=== PATIENT | male | born 1955 | race Caucasian/White ===

== ENCOUNTER → 2017-11-05 | Outpatient (CLI) | payer OTHER ==
[~2017-11-05] MED LIST: ACET500 PO; AMLO5 PO; AMOX1XR PO; Chondroitin Su250 MG PO; Flonase 0.05% N16 GM; HYDCHL25 PO; HYDR1TAB94 PO; KETO10 PO; LEVO750 PO; LOSHYD100 PO; MECL12.5 PO; NEBI10 PO; ONDA8 PO; OXYACE5T PO; PROBIOTIC1 EAC1; PROM25 PO; TAMS.4ER PO; VALS80 PO; Zofran Odt4 MG SL
== END | disposition home or self-care (01) ==
LOC: OLS 13:54
PROVIDERS: Internal Medicine
DX: N18.2 Chronic kidney disease, stage 2 (mild) (principal)
CPT/HCPCS: 81050; 82570; 84156

== ENCOUNTER → 2017-11-11 | Outpatient (CLI) | payer OTHER ==
[2017-11-11 16:32] LABS: Anion Gap 8 mmol/L (6-16); Blood Urea Nitrogen 24 mg/dL (8-24); Bun/Creatinine Ratio 24.4 (12.0-20.0); CO2, Blood 27 mmol/L (21-32); Calcium, Blood 9.2 mg/dL (8.5-10.1); Chloride, Blood 105 mmol/L (98-108); Creatinine, Blood 0.98 mg/dL (0.60-1.20); Glomerular Filtration Rate >60 (60-); Glucose, Blood 81 mg/dL (70-99); Potassium, Blood 3.9 mmol/L (3.5-5.5); Sodium, Blood 140 mmol/L (136-145)
[2017-11-12 20:49] LABS: ANA Positive (NEG); Myeloperoxidase Antibody <0.2 AI (<1.0)
[2017-11-12 20:51] LABS: IgA 678 mg/dL (71-397); IgG 859 mg/dL (758-1612); IgM 77 mg/dL (40-230)
[2017-11-13 12:40] LABS: Albumin 3.6 g/dL (3.3-4.8); Albumin 51.9 % (45.0-80.0)
[2017-11-13 19:02] LABS: ANCA <1:20
== END | disposition home or self-care (01) ==
LOC: OLS 14:20
PROVIDERS: Internal Medicine
DX: N18.2 Chronic kidney disease, stage 2 (mild) (principal)
CPT/HCPCS: 36415; 80048; 82784; 83516; 84165; 86038; 86225; 86235; 86256; 86334

== ENCOUNTER 2018-11-11 11:20 | Day surgery (SDC) | payer OTHER ==
[~2018-11-11] VITALS: Ht 180.3 cm; Wt 118.3 kg
[~2018-11-11 11:20] MED LIST changes: +ACETAMINOPHEN500 MG PO; +ATOR20 PO; +Aspirin EC81 MG PO; +LOSARTAN POTAS100 MG PO; +NEBI5 PO
== END 2018-11-11 13:09 | disposition home or self-care (01) ==
LOC: ORSCSDS 11:20
PROVIDERS: Internal Medicine Gastroenterology
PROC: 0DBM8ZX Excision of Descending Colon, Via Natural or Artificial Opening Endoscopic, Diagnostic (ICD-10-PCS; principal; 2018-11-11 12:45)
PROC: 0DBK8ZX Excision of Ascending Colon, Via Natural or Artificial Opening Endoscopic, Diagnostic (ICD-10-PCS; principal; 2018-11-11 12:45)
DX: Z12.11 Encounter for screening for malignant neoplasm of colon (principal); Z86.010 Personal history of colon polyps; K63.5 Polyp of colon; D12.4 Benign neoplasm of descending colon; I10 Essential (primary) hypertension; J45.909 Unspecified asthma, uncomplicated; E78.5 Hyperlipidemia, unspecified; G47.33 Obstructive sleep apnea (adult) (pediatric); E66.01 Morbid (severe) obesity due to excess calories; Z68.35 Body mass index [BMI] 35.0-35.9, adult; Z79.82 Long term (current) use of aspirin; Z79.899 Other long term (current) drug therapy
CPT/HCPCS: 88305; J7120

== ENCOUNTER 2020-07-18 06:31 | Day surgery (SDC) | payer OTHER ==
[~2020-07-18] VITALS: Ht 177.8 cm; Wt 131.0 kg
[~2020-07-18 06:31] MED LIST changes: +Isosorbide Mono30 MG PO
--- NOTE | 2020-07-18 10:45 | NUR ---
SALINE LOCK REMOVED. CLOTH DOT PLACED TO RIGHT RADIAL SITE. SLING PLACED R ARM. CALLED AND IS PRESENT. DISCHARGE GONE OVER WITH BOTH PT AND . BOTH VERBALIZE UNDERSTANING OF INSTRUCTIONS. PT DISCHARGED PER W/C TO PRIVATE VEHICLE.
== END 2020-07-18 10:30 | disposition home or self-care (01) ==
LOC: MHTC 06:31
PROC: 4A023N7 Measurement of Cardiac Sampling and Pressure, Left Heart, Percutaneous Approach (ICD-10-PCS; principal; 2020-07-18)
PROC: B201YZZ Plain Radiography of Multiple Coronary Arteries using Other Contrast (ICD-10-PCS; principal; 2020-07-18)
DX: I25.110 Atherosclerotic heart disease of native coronary artery with unstable angina pectoris (principal); I10 Essential (primary) hypertension; G47.30 Sleep apnea, unspecified; E66.9 Obesity, unspecified; E78.00 Pure hypercholesterolemia, unspecified; Z88.5 Allergy status to narcotic agent; Z88.8 Allergy status to other drugs, medicaments and biological substances; Z79.82 Long term (current) use of aspirin; Z79.899 Other long term (current) drug therapy; Z68.41 Body mass index [BMI] 40.0-44.9, adult
CPT/HCPCS: 76937; 85347; 93458; 99152; 99153; C1769; C1894; J1644; J2250; J3010; J7030; J7050; Q9967

== ENCOUNTER 2021-04-18 06:41 | Day surgery (SDC) | payer OTHER ==
[~2021-04-18] VITALS: Ht 178 cm; Wt 130.9 kg
[~2021-04-18 06:41] MED LIST changes: +LOSARTAN-HCTZ1 EAC5 PO
--- NOTE | 2021-04-18 09:42 | NUR ---
Ambulatory in Day Surgery History, Chart, Medications and Allergies reviewed before start of procedure.Patient confirms NPO status and agrees with scheduled surgery. Patient reports completing Chlorhexadine shower X2 prior to admission to hospital.Surgical site prepped with 2% Chlorhexidine cloth wipe.
--- NOTE | 2021-04-18 12:48 | NUR ---
ARRIVAL TO UNIT PT ARRIVED TO UNIT FROM PACU AT 1230. PT AA0X4, DENIES PAIN AT THIS TIME. POLAR LENORE ON CDI. CHRIS WRAP CDI. PT ON 2L VIA NC, SATS AT 88-90% WITHOUT. 95% ON 2L. CANNOT WIGGLE TOES AT THIS TIME, AND REPORTS DECREASED SENSATION UP TO WAIST. CALL LIGHT IS IN REACH AND PATIENT ORIENTED ON USE. CURRENTLY HE IS RESTING IN BED LAYING FLAT. BP LOW ON ARRIVAL, SYSTOLIC 88. HE DENIES FEELING LIGHTHEADED OR DIZZY, IV FLUIDS INFUSING.
--- NOTE | 2021-04-18 17:01 | NUR ---
SHIFT SUMMARY S/P RTKA PT AA0X4, DRESSING CDI. POLAR LENORE IS IN PLACE. PT NEEDED IV PAIN MEDICATION X1 DURING SHIFT FOR BREAKTHROUGH PAIN, REPORTS GREAT IMPROVEMENT AT THIS TIME. ABLE TO WORK WITH THERAPY AND AMBULATE THE HALLS. VOIDED X1. TOLERATING PO, REPORTS SLIGHT NAUSEA WITH SOME FOODS. PLAN IS TO WORK WITH THERAPY TOMORROW AND DISCHARGE HOME.
[2021-04-19 04:22] LABS: BASOPHILS ABSOLUTE AUTO 0.02 K/mm3 (0.00-0.23); BASOPHILS PERCENT AUTO 0 % (0-2); EOSINOPHILS PERCENT AUTO 0 % (0-6); Hematocrit 37.4 % (37.0-53.0); Hemoglobin 12.5 g/dL (13.5-17.5); IMMATURE GRAN ABSOLUTE AUTO 0.09 K/mm3 (0.00-0.10); IMMATURE GRAN PERCENT AUTO 1 % (0-1); LYMPHOCYTES ABSOLUTE AUTO 0.96 K/mm3 (0.84-5.20); LYMPHOCYTES PERCENT AUTO 6 % (21-46); MONOCYTES ABSOLUTE AUTO 0.96 K/mm3 (0.16-1.47); MONOCYTES PERCENT AUTO 6 % (4-13); Mean Corpuscular HGB 30.9 pg (26.0-34.0); Mean Corpuscular HGB Conc 33.4 g/dL (31.5-36.5); Mean Corpuscular Volume 93 fL (80-100); Mean Platelet Volume 9.1 fL (9.1-12.4); NEUTROPHILS ABSOLUTE AUTO 13.78 K/mm3 (1.96-9.15); NEUTROPHILS PERCENT AUTO 87 % (41-73); Platelet Count 261 K/mm3 (150-400); RDW Coefficient Variation 12.7 % (11.7-14.2); RDW Standard Deviation 43.8 fL (35.1-46.3); Red Blood Cell Count 4.04 M/mm3 (4.30-5.90); White Blood Cell Count 15.81 K/mm3 (4.00-11.30)
[2021-04-19 04:42] LABS: Anion Gap 8 mmol/L (6-16); Blood Urea Nitrogen 33 mg/dL (8-24); Bun/Creatinine Ratio 27.3 (12.0-20.0); CO2, Blood 23 mmol/L (21-32); Calcium, Blood 8.4 mg/dL (8.5-10.1); Chloride, Blood 106 mmol/L (98-108); Creatinine, Blood 1.21 mg/dL (0.60-1.20); Glomerular Filtration Rate >60 (60-); Glucose, Blood 129 mg/dL (70-99); Potassium, Blood 4.2 mmol/L (3.5-5.5); Sodium, Blood 137 mmol/L (136-145)
--- NOTE | 2021-04-19 05:12 | NUR ---
SHIFT SUMMARY A/OX4, 1 ASSIST WITH FWW AND GB. AMBULATING FOSS THIS SHIFT. C/O NAUSEA T/O SHIFT, MEDICATED PER EMAR. AQUACEL DRESSING C/D/I WITH POLAR PACK IN PLACE. VSS, NO ACUTE CHANGES AT THIS TIME. BED IN LOWEST POSITION WITH CALL LIGHT IN REACH. WILL CONTINUE TO MONITOR AND REPORT TO ONCOMING RN.
[2021-04-19] MEDS ORDERED: Percocet 5-3251 EACH PO (08:59)
[2021-04-19] MEDS ORDERED: ONDA4 PO (08:59)
[2021-04-19] MEDS ORDERED: XARELTO10 M5 PO (09:00)
--- NOTE | 2021-04-19 14:09 | NUR ---
DISCHARGE NOTE: PATIENT WAS EDUCATED ON DISCHARGE INSTRUCTIONS. PATIENT AND VERBALIZED UNDERSTANDING OF INSTRUCTIONS. HARD PERSCRIPTIONS WERE IN THE INSTRUCTION PACKET. PATIENT IS ALERT AND ORIENTED X4. VS ARE WNL AND ON RA. PAIN IS MANAGED WITH PO NARCOTIC MEDICATION. HE IS ABLE TO WIGGLE FINGERS AND TOES. PATIENT AMBULATED IN HALLWAYS WITH SBA WITH FWW AND GAIT BELT. HE HAS HIS ITEMS GATHERED. IV WAS TAKEN OUT AND WAS WNL. HE IS DRESSED AND WAS WHEELCHAIRED OUT TO HIS TO BE TAKEN HOME.
== END 2021-04-19 14:05 | disposition home or self-care (01) ==
LOC: ORSCMMR 06:41 → ORD 08:15 → ORSCMMR 08:15 → SURS 12:15 → ORSCMMR 04-19 14:05 → SURS 04-19 14:05
PROVIDERS: Orthopaedic Surgery
PROC: 0SRC0JA Replacement of Right Knee Joint with Synthetic Substitute, Uncemented, Open Approach (ICD-10-PCS; principal; 2021-04-18 08:15)
PROC: 8E0YXBZ Computer Assisted Procedure of Lower Extremity (ICD-10-PCS; principal; 2021-04-18 08:15)
DX: M17.11 Unilateral primary osteoarthritis, right knee (principal); I10 Essential (primary) hypertension; E78.5 Hyperlipidemia, unspecified; G47.33 Obstructive sleep apnea (adult) (pediatric); Z86.711 Personal history of pulmonary embolism; E66.01 Morbid (severe) obesity due to excess calories; Z68.41 Body mass index [BMI] 40.0-44.9, adult; Z79.82 Long term (current) use of aspirin; Z79.899 Other long term (current) drug therapy
CPT/HCPCS: 36415; 73560-RT; 80048; 85025; 97110; 97116; 97162; A9270; C1776; J0171; J0690; J0735; J1100; J1170; J1885; J2370; J2405; J2704; J2765; J2795; J7120

== ENCOUNTER → 2021-05-08 | Outpatient (CLI) | payer OTHER ==
[~2021-05-08] MED LIST changes: +ONDA4 PO; +Percocet 5-3251 EACH PO; +XARELTO10 M5 PO
[2021-05-08 14:10] LABS: BASOPHILS ABSOLUTE AUTO 0.07 K/mm3 (0.00-0.23); BASOPHILS PERCENT AUTO 1 % (0-2); EOSINOPHILS ABSOLUTE AUTO 0.07 K/mm3 (0.00-0.68); EOSINOPHILS PERCENT AUTO 1 % (0-6); Hematocrit 40.3 % (37.0-53.0); Hemoglobin 13.4 g/dL (13.5-17.5); IMMATURE GRAN ABSOLUTE AUTO 0.03 K/mm3 (0.00-0.10); IMMATURE GRAN PERCENT AUTO 0 % (0-1); LYMPHOCYTES ABSOLUTE AUTO 1.97 K/mm3 (0.84-5.20); LYMPHOCYTES PERCENT AUTO 23 % (21-46); MONOCYTES ABSOLUTE AUTO 0.63 K/mm3 (0.16-1.47); MONOCYTES PERCENT AUTO 7 % (4-13); Mean Corpuscular HGB 31.2 pg (26.0-34.0); Mean Corpuscular HGB Conc 33.3 g/dL (31.5-36.5); Mean Corpuscular Volume 94 fL (80-100); Mean Platelet Volume 9.3 fL (9.1-12.4); NEUTROPHILS PERCENT AUTO 68 % (41-73); Platelet Count 391 K/mm3 (150-400); RDW Coefficient Variation 12.7 % (11.7-14.2); RDW Standard Deviation 43.4 fL (35.1-46.3); Red Blood Cell Count 4.29 M/mm3 (4.30-5.90); White Blood Cell Count 8.57 K/mm3 (4.00-11.30)
[2021-05-08 14:23] LABS: Albumin, Blood 3.8 g/dL (3.4-5.0); Bilirubin, Total 0.7 mg/dL (0.1-1.0); Bun/Creatinine Ratio 17.4 (12.0-20.0); Calcium, Blood 9.8 mg/dL (8.5-10.1); Creatinine, Blood 1.44 mg/dL (0.60-1.20); Globulin, Blood 3.9 g/dL (2.2-4.0); Potassium, Blood 4.6 mmol/L (3.5-5.5); Total Protein, Blood 7.7 g/dL (6.4-8.2)
== END | disposition home or self-care (01) ==
LOC: LAB 14:04 → LAB SHORT 14:04
PROVIDERS: Physician Assistant
DX: E86.0 Dehydration (principal); R11.2 Nausea with vomiting, unspecified
CPT/HCPCS: 80053; 83690; 85025; 85651

== ENCOUNTER 2021-08-15 05:52 | Day surgery (SDC) | payer OTHER ==
[~2021-08-15] VITALS: Ht 180.3 cm; Wt 111.7 kg
[~2021-08-15 05:52] MED LIST changes: +ASPI81CH PO
--- NOTE | 2021-08-15 13:06 | NUR ---
POST OP: REPORT RECEIVED FROM DEB NUGENT. PT TO UNIT AT ABOUT 1020, IS A/O, VSS. SURGICAL SITE CDI WITH POLAR PAC. PT UNABLE TO WIGGLE TOES, WILL CTM AND AWAIT RETURN OF SENSATION.
--- NOTE | 2021-08-15 16:27 | NUR ---
SUMMARY: PT IS POD0 L TKA. VSS, A/O. SURGICAL SITE WNL AND PT ABLE TO WORK WITH THERAPY. VOIDING, MARCELLE SMALL AMT LIQUID PO. PT C/O NAUSEA UNABLE TO EAT MUCH, NO EMESIS. MEDICATED PER EMAR. PT HAS REPORTED MINIMAL PAIN. NO ACUTE CONCERNS, WILL REPORT TO KOREY BOYD.
[2021-08-16 04:30] LABS: BASOPHILS ABSOLUTE AUTO 0.03 K/mm3 (0.00-0.23); BASOPHILS PERCENT AUTO 0 % (0-2); EOSINOPHILS ABSOLUTE AUTO 0.01 K/mm3 (0.00-0.68); EOSINOPHILS PERCENT AUTO 0 % (0-6); Hematocrit 36.1 % (37.0-53.0); Hemoglobin 11.7 g/dL (13.5-17.5); IMMATURE GRAN ABSOLUTE AUTO 0.07 K/mm3 (0.00-0.10); IMMATURE GRAN PERCENT AUTO 1 % (0-1); LYMPHOCYTES ABSOLUTE AUTO 1.08 K/mm3 (0.84-5.20); LYMPHOCYTES PERCENT AUTO 9 % (21-46); MONOCYTES ABSOLUTE AUTO 0.97 K/mm3 (0.16-1.47); MONOCYTES PERCENT AUTO 8 % (4-13); Mean Corpuscular HGB 30.5 pg (26.0-34.0); Mean Corpuscular HGB Conc 32.4 g/dL (31.5-36.5); Mean Corpuscular Volume 94 fL (80-100); Mean Platelet Volume 9.5 fL (9.1-12.4); NEUTROPHILS ABSOLUTE AUTO 10.43 K/mm3 (1.96-9.15); NEUTROPHILS PERCENT AUTO 83 % (41-73); Platelet Count 238 K/mm3 (150-400); RDW Coefficient Variation 13.1 % (11.7-14.2); RDW Standard Deviation 44.7 fL (35.1-46.3); Red Blood Cell Count 3.83 M/mm3 (4.30-5.90); White Blood Cell Count 12.59 K/mm3 (4.00-11.30)
[2021-08-16 04:46] LABS: Anion Gap 5 mmol/L (6-16); Blood Urea Nitrogen 24 mg/dL (8-24); Bun/Creatinine Ratio 25.9 (12.0-20.0); CO2, Blood 25 mmol/L (21-32); Calcium, Blood 8.5 mg/dL (8.5-10.1); Chloride, Blood 110 mmol/L (98-108); Creatinine, Blood 0.93 mg/dL (0.60-1.20); Glomerular Filtration Rate >60 (60-); Glucose, Blood 121 mg/dL (70-99); Potassium, Blood 4.3 mmol/L (3.5-5.5); Sodium, Blood 140 mmol/L (136-145)
--- NOTE | 2021-08-16 06:15 | NUR ---
RESTING WELL IN SUPINE WITH EYES CLOSED, HAS AMBULATED WELL IN ROOM. PAIN MANAGED PER MD ORDERS. PLEASANT AND COOPERATIVE WITH CARE. CHRIS WRAP OVER AQUACEL WITH POLAR LENORE IN PLACE TO LEFT KNEE. DENIES FURTHER NEEDS OR WANTS AT THIS TIME. SAFETY MEASURES IN PLACE. WILL CONTINUE TO MONITOR AND ASSRESS NEEDS THEY ARISE. WILL GIVE HAND OFF TO ONCOMING SHIFT USING SBAR DURING BEDSIDE REPORT.
[2021-08-16] MEDS ORDERED: XARELTO10 M1 PO (08:50)
[2021-08-16] MEDS ORDERED: HYDMOR2 PO (08:50)
[2021-08-16] MEDS ORDERED: PROM25 PO (08:51)
--- NOTE | 2021-08-16 09:30 | NUR ---
DISCHARGE INSTRUCTIONS GIVEN TO PATIENT AT THIS TIME. PATIENT VERBALIZED UNDERSTANDING OF INSTRUCTIONS. IV REMOVED. DRESSING TO LEFT KNEE CLEAN/DRY AND INTACT. PRESCRIPTIONS GIVEN. NO SIGNS OR SYMPTOMS ACUTE DISTRESS NOTED, NO COMPLAINTS OF PAIN OR NAUSEA.
== END 2021-08-16 09:53 | disposition home or self-care (01) ==
LOC: SURS 05:52 → ORSCMMR 05:52 → SURS 10:39 → ORSCMMR 08-16 09:53
PROVIDERS: Orthopaedic Surgery
PROC: 8E0Y0CZ Robotic Assisted Procedure of Lower Extremity, Open Approach (ICD-10-PCS; principal; 2021-08-15 07:30)
PROC: 0SRD0JA Replacement of Left Knee Joint with Synthetic Substitute, Uncemented, Open Approach (ICD-10-PCS; principal; 2021-08-15 07:30)
DX: M17.12 Unilateral primary osteoarthritis, left knee (principal); I10 Essential (primary) hypertension; E78.00 Pure hypercholesterolemia, unspecified; Z79.899 Other long term (current) drug therapy; Z79.82 Long term (current) use of aspirin
CPT/HCPCS: 27447; S2900; 36415; 73560-LT; 80048; 85025; 97110; 97116; 97162; A9270; C1776; J0171; J0690; J0735; J1100; J1170; J1885; J2250; J2405; J2704; J2765; J2795; J3010; J7120

== ENCOUNTER 2021-10-13 09:39 | Day surgery (SDC) | payer OTHER ==
[~2021-10-13] VITALS: Ht 180.3 cm; Wt 104.6 kg
[~2021-10-13 09:39] MED LIST changes: +HYDMOR2 PO; +XARELTO10 M1 PO
== END 2021-10-13 12:38 | disposition home or self-care (01) ==
LOC: ORSCSDS 09:39
PROVIDERS: Orthopaedic Surgery
PROC: 0SNDXZZ Release Left Knee Joint, External Approach (ICD-10-PCS; principal; 2021-10-13 11:00)
DX: M24.662 Ankylosis, left knee (principal); Z96.652 Presence of left artificial knee joint; I10 Essential (primary) hypertension; G47.33 Obstructive sleep apnea (adult) (pediatric); E66.9 Obesity, unspecified; Z68.32 Body mass index [BMI] 32.0-32.9, adult; Z79.899 Other long term (current) drug therapy
CPT/HCPCS: A9270; J0690; J1885; J2250; J2704; J3010; J7120

== ENCOUNTER 2021-12-29 06:41 | Day surgery (SDC) | payer OTHER ==
[~2021-12-29] VITALS: Ht 180.3 cm; Wt 110.9 kg
[2021-12-29] MEDS ORDERED: CELEBREX200 MG PO (07:21)
[2021-12-29] MEDS ORDERED: LOSARTAN POTAS100 M1 PO (07:22)
[2021-12-29] MEDS ORDERED: Ultram50 MG PO (07:22)
[2021-12-29] MEDS ORDERED: ASPI81CH PO (07:27)
--- NOTE | 2021-12-29 09:28 | NUR ---
12/29/21 0928 Evelyn Ferrara REPORT GIVEN TO [facility].RDS. VSS. PT IN CHAIR WITH OP LIMB ELEVATED, ICE BEHIND THE KNEE. PT HAS PO FLUIDS AND SNACKS AT CHAIRSIDE. CALL LIGHT IN REACH.
== END 2021-12-29 10:03 | disposition home or self-care (01) ==
LOC: ORSCSDS 06:41
PROVIDERS: Podiatrist Foot & Ankle Surgery
PROC: 0L8P0ZZ Division of Left Lower Leg Tendon, Open Approach (ICD-10-PCS; principal; 2021-12-29 08:00)
DX: M21.6X2 Other acquired deformities of left foot (principal); I10 Essential (primary) hypertension; Z86.718 Personal history of other venous thrombosis and embolism; Z79.82 Long term (current) use of aspirin; Z79.899 Other long term (current) drug therapy; E66.9 Obesity, unspecified; Z68.34 Body mass index [BMI] 34.0-34.9, adult
CPT/HCPCS: A9270; J0171; J0690; J1100; J2250; J2405; J2704; J3010; J7120

== ENCOUNTER 2022-02-05 11:22 | Day surgery (SDC) | payer OTHER ==
[~2022-02-05] VITALS: Ht 180.3 cm; Wt 113.6 kg
[~2022-02-05 11:22] MED LIST changes: +CELEBREX200 MG PO; +LOSARTAN POTAS100 M1 PO; +Ultram50 MG PO
== END 2022-02-05 14:08 | disposition home or self-care (01) ==
LOC: ORSCSDS 11:22
PROVIDERS: Podiatrist Foot & Ankle Surgery
PROC: 0L8N0ZZ Division of Right Lower Leg Tendon, Open Approach (ICD-10-PCS; principal; 2022-02-05 12:45)
DX: M21.6X1 Other acquired deformities of right foot (principal); I10 Essential (primary) hypertension; Z79.899 Other long term (current) drug therapy; E66.9 Obesity, unspecified; Z68.34 Body mass index [BMI] 34.0-34.9, adult
CPT/HCPCS: J0171; J0690; J2250; J2704; J3010; J7120

== ENCOUNTER 2022-05-28 06:49 | Day surgery (SDC) | payer OTHER ==
[~2022-05-28] VITALS: Ht 180.3 cm; Wt 115.1 kg
== END 2022-05-28 08:40 | disposition home or self-care (01) ==
LOC: ORSCSDS 06:49
PROVIDERS: Orthopaedic Surgery
PROC: 01N50ZZ Release Median Nerve, Open Approach (ICD-10-PCS; principal; 2022-05-28 08:15)
DX: G56.03 Carpal tunnel syndrome, bilateral upper limbs (principal); I10 Essential (primary) hypertension; E78.5 Hyperlipidemia, unspecified; M19.041 Primary osteoarthritis, right hand; I25.10 Atherosclerotic heart disease of native coronary artery without angina pectoris; G47.33 Obstructive sleep apnea (adult) (pediatric); E66.9 Obesity, unspecified; Z68.35 Body mass index [BMI] 35.0-35.9, adult; Z79.82 Long term (current) use of aspirin; Z79.899 Other long term (current) drug therapy
CPT/HCPCS: J1100; J2250; J2405; J2704; J3010; J7120

== ENCOUNTER 2022-07-10 06:20 | Day surgery (SDC) | payer OTHER ==
[~2022-07-10] VITALS: Ht 180.3 cm; Wt 121.2 kg
[2022-07-10] MEDS ORDERED: LOSA50 PO (06:59)
--- NOTE | 2022-07-10 07:05 | NUR ---
07/10/22 0705 Lorena Macias CALL LIGHT WITHIN REACH
== END 2022-07-10 08:25 | disposition home or self-care (01) ==
LOC: ORSCSDS 06:20
PROVIDERS: Orthopaedic Surgery
PROC: 01N50ZZ Release Median Nerve, Open Approach (ICD-10-PCS; principal; 2022-07-10 07:30)
DX: G56.02 Carpal tunnel syndrome, left upper limb (principal); I10 Essential (primary) hypertension; G47.33 Obstructive sleep apnea (adult) (pediatric); E78.5 Hyperlipidemia, unspecified; E66.9 Obesity, unspecified; Z68.37 Body mass index [BMI] 37.0-37.9, adult; Z79.82 Long term (current) use of aspirin; Z79.899 Other long term (current) drug therapy
CPT/HCPCS: J0171; J2250; J2704; J3010; J7120

== ENCOUNTER 2023-06-08 21:35 | Emergency (ER) | payer OTHER ==
[~2023-06-08] VITALS: Ht 180.3 cm; Wt 112.5 kg
[~2023-06-08 21:35] MED LIST changes: +LOSA50 PO
[2023-06-08 22:51] LABS: Albumin, Blood 3.3 g/dL (3.4-5.0); Albumin/Globulin Ratio 0.9 (0.8-1.8); Bilirubin, Total 0.3 mg/dL (0.1-1.0); Calcium, Blood 8.8 mg/dL (8.5-10.1); Globulin, Blood 3.5 g/dL (2.2-4.0); Total Protein, Blood 6.8 g/dL (6.4-8.2)
[2023-06-08 23:07] LABS: BASOPHILS ABSOLUTE AUTO 0.04 K/mm3 (0.00-0.23); BASOPHILS PERCENT AUTO 1 % (0-2); EOSINOPHILS PERCENT AUTO 3 % (0-6); Hematocrit 41.9 % (37.0-53.0); Hemoglobin 14.1 g/dL (13.5-17.5); IMMATURE GRAN ABSOLUTE AUTO 0.03 K/mm3 (0.00-0.10); IMMATURE GRAN PERCENT AUTO 0 % (0-1); LYMPHOCYTES ABSOLUTE AUTO 2.02 K/mm3 (0.84-5.20); LYMPHOCYTES PERCENT AUTO 26 % (21-46); MONOCYTES ABSOLUTE AUTO 0.52 K/mm3 (0.16-1.47); MONOCYTES PERCENT AUTO 7 % (4-13); Mean Corpuscular HGB 31.3 pg (26.0-34.0); Mean Corpuscular HGB Conc 33.7 g/dL (31.5-36.5); Mean Corpuscular Volume 93 fL (80-100); Mean Platelet Volume 9.5 fL (9.1-12.4); NEUTROPHILS ABSOLUTE AUTO 4.84 K/mm3 (1.96-9.15); NEUTROPHILS PERCENT AUTO 63 % (41-73); Platelet Count 230 K/mm3 (150-400); RDW Coefficient Variation 13.1 % (11.7-14.2); RDW Standard Deviation 44.6 fL (35.1-46.3); Red Blood Cell Count 4.51 M/mm3 (4.30-5.90); White Blood Cell Count 7.65 K/mm3 (4.00-11.30)
[2023-06-09 02:57] VITALS: BP 130/92
== END 2023-06-09 02:58 | disposition home or self-care (01) ==
LOC: ER 21:35
PROVIDERS: Student in an Organized Health Care Education/Training Program
DX: R07.2 Precordial pain (principal); Z91.048 Other nonmedicinal substance allergy status; Z88.8 Allergy status to other drugs, medicaments and biological substances; Z79.899 Other long term (current) drug therapy; I11.0 Hypertensive heart disease with heart failure; G47.30 Sleep apnea, unspecified; I50.9 Heart failure, unspecified
CPT/HCPCS: 71046; 80053; 83690; 83880; 84484; 85025; 93005; 93010; 99285-25; A9270

== ENCOUNTER 2025-08-16 09:32 | Day surgery (SDC) | payer OTHER ==
[~2025-08-16] VITALS: Ht 180.3 cm; Wt 129.5 kg
[~2025-08-16 09:32] MED LIST changes: +Lidocaine 2%-Epineph 1:100000 20 ML MDV ONE; +Lidocaine HCl 2% 10 ML SDA ONE; +NS 500 ML IV ONE
[2025-08-16] MEDS ORDERED: TAMSULOSIN HCL0.4 M1 PO (10:01)
[2025-08-16] MEDS ORDERED: XARELTO20 MG PO (10:02)
[2025-08-16] MEDS ORDERED: CHLO25B PO (10:04)
[2025-08-16] MEDS ORDERED: AMLODIPINE BESY10 MG PO (10:04)
[2025-08-16] MEDS ORDERED: MAGNESIUM (10:06)
[2025-08-16] MEDS ORDERED: [UNRECOGNIZED DRUG - OTHER] (10:06)
[2025-08-16] MEDS ORDERED: NS 500 ML IV ONE (10:10)
[2025-08-16] MEDS ORDERED: CeFAZolin Sodium 3,000 MG VIAL ONE (10:25)
--- NOTE | 2025-08-16 10:37 | NUR ---
08/16/[address] [place] [id number]: TIMEOUT AND DR LEMOS INJECTION OF TOTAL OF 14 CC OF MIXTURE OF (9CC LIDOCAINE 1% WITH EPI 1:100,000 WITH [address] B[address]B). DR LEMOS USED TWO SYRINGES FOR A TOTAL OF 14 CC INJECTED.. PT TOELRATED WELL.
[2025-08-16 15:07] VITALS: BP 123/75
== END 2025-08-16 12:04 | disposition home or self-care (01) ==
LOC: ORSCSDS 09:32
PROVIDERS: Orthopaedic Surgery
PROC: 0KND0ZZ Release Left Hand Muscle, Open Approach (ICD-10-PCS; principal; 2025-08-16 11:00)
PROC: 0LN80ZZ Release Left Hand Tendon, Open Approach (ICD-10-PCS; principal; 2025-08-16 11:00)
PROC: 0JBH0ZX Excision of Left Lower Arm Subcutaneous Tissue and Fascia, Open Approach, Diagnostic (ICD-10-PCS; principal; 2025-08-16 11:00)
PROC: 01N50ZZ Release Median Nerve, Open Approach (ICD-10-PCS; principal; 2025-08-16 11:00)
DX: G56.02 Carpal tunnel syndrome, left upper limb (principal); M65.332 Trigger finger, left middle finger; M65.342 Trigger finger, left ring finger; I10 Essential (primary) hypertension; E78.5 Hyperlipidemia, unspecified; Z86.711 Personal history of pulmonary embolism; Z79.82 Long term (current) use of aspirin; Z79.01 Long term (current) use of anticoagulants; Z79.899 Other long term (current) drug therapy; G47.33 Obstructive sleep apnea (adult) (pediatric)
CPT/HCPCS: 88304; 88313; J0690; J2003; J2704; J7040